=== PATIENT | male | born 1985 | race Caucasian/White ===

== ENCOUNTER 2018-08-29 02:58 | Emergency (ER) | payer SELFPAY ==
[~2018-08-29] VITALS: Ht 180.3 cm; Wt 70.5 kg
[2018-08-29 03:12] VITALS: Ht 180.3 cm; Wt 70.5 kg
[2018-08-29] MEDS ORDERED: NAPROSYN500 MG PO (04:15)
[2018-08-29] MEDS ORDERED: AUGMENTIN 875-11 TAB PO (04:15)
[2018-08-29 04:27] VITALS: BP 109/76
== END 2018-08-29 04:29 | disposition home or self-care (01) ==
LOC: D.ER 02:58
DX: M94.0 Chondrocostal junction syndrome [Tietze] (principal); J01.90 Acute sinusitis, unspecified; R05 Cough; F17.200 Nicotine dependence, unspecified, uncomplicated

== ENCOUNTER 2019-01-25 06:59 | Emergency (ER) | payer BC ==
[~2019-01-25] VITALS: Ht 180.3 cm; Wt 79.5 kg
[~2019-01-25 06:59] MED LIST: AUGMENTIN 875-11 TAB PO; NAPROSYN500 MG PO
[2019-01-25 07:03] VITALS: Ht 180.3 cm; Wt 79.5 kg
[2019-01-25 07:36] LABS: ALBUMIN 3.6 g/dL (3.4-5.0); ALKALINE PHOSPHATASE 49 U/L (46-116); ALT (SGPT) 39 U/L (10-68); BILIRUBIN - TOTAL 0.75 mg/dL (0.2-1.3); CALC OSMOLALITY 282 mosm/kg (275-300); CALCIUM 8.8 mg/dL (8.5-10.1); CARBON DIOXIDE 29.4 mmol/L (21.0-32.0); CHLORIDE - SERUM 104 mmol/L (98-107); CREATININE - SERUM 1.1 mg/dL (0.6-1.3); GLUCOSE 160 mg/dL (74-106); POTASSIUM - SERUM 4.1 mmol/L (3.5-5.1); PROTEIN - SERUM 6.6 g/dL (6.4-8.2); SODIUM 141 mmol/L (136-145); UREA NITROGEN 11 mg/dL (7-18); eGFR NON AFRICAN AMERICAN 82 mL/min (90-120)
[2019-01-25 07:38] LABS: BASOPHILS 0.1 % (0-2); HEMOGLOBIN 18.5 g/dL (13.5-17.5); IMMATURE GRANULOCYTES 0.4 % (0-5); MCH 30.5 pg (26.0-34.0); MCHC 35.6 g/dL (31.0-37.0); MCV 85.7 fL (80.0-100.0); MEAN PLATELET VOLUME 10.2 fL (7.4-10.4); MONOCYTES 3.3 % (2-11); NEUTROPHILS 90.2 % (40-80); PLATELET COUNT 195 10x3/uL (130-400); RBC 6.07 10x6/uL (4.20-6.10); RDW 13.2 % (11.5-14.5); WBC 14.7 10x3/uL (4.8-10.8)
[2019-01-25 08:37] LABS: APPEARANCE HAZY (CLEAR); BILIRUBIN NEGATIVE (NEGATIVE); COLOR YELLOW (YELLOW); GLUCOSE NEGATIVE (NEGATIVE); KETONE MODERATE mg/dL (NEGATIVE); NITRITE NEGATIVE (NEGATIVE); PROTEIN NEGATIVE (NEGATIVE); SPECIFIC GRAVITY 1.015 (1.005-1.020); UROBILINOGEN NORMAL (NORMAL)
[2019-01-25] MEDS ORDERED: ZOFRAN ODT4 MG/UDTAB PO (10:06)
[2019-01-25] MEDS ORDERED: LOMOTIL 2.5-0.1 EAC1 PO (10:06)
[2019-01-25 10:22] VITALS: BP 104/69
== END 2019-01-25 10:27 | disposition home or self-care (01) ==
LOC: D.ER 06:59
PROVIDERS: Emergency Medicine
DX: R11.10 Vomiting, unspecified (principal); R19.7 Diarrhea, unspecified; S60.561A Insect bite (nonvenomous) of right hand, initial encounter; W57.XXXA Bitten or stung by nonvenomous insect and other nonvenomous arthropods, initial encounter; Y93.9 Activity, unspecified; Y92.89 Other specified places as the place of occurrence of the external cause